=== PATIENT | male | born 1945 | race Caucasian/White ===

== ENCOUNTER → 2017-06-27 | Outpatient (CLI) | payer OTHER ==
--- NOTE | ~2017-06-27 | 2DMMODE ---
[facility] [place] [address] 2 D/M-MODE ECHOCARDIOGRAM Name: TING VALENTIN Room #: REG [facility]#: [id number] Admission: 06/27/17 Attend Phys: Devin Grier MD Discharge: Date of : 47 Date of Service: 06/27/17 1305 Report #: [id number] THIS REPORT FOR: //name// APPROVED REPORT Study performed: 06/27/2017 10:53:02 EXAM: Comprehensive 2D, Doppler, and color-flow Echocardiogram Patient Location: Echo lab Status: routine BSA: 2.13 BP: 144/80 mmHg Other Information Study Quality: Good Technically limited study due to low parasternal window. Indications Arrhythmia 2D Dimensions RVDd: 29.55 mm LVEF(%): 31.63 (>50%) IVSd: 13.03 (7-11mm) LVOT Diam: 22.60 (18-24mm) LVDd: 43.28 mm PWd: 11.73 (7-11mm) Ascending Ao: 37.81 (22-36mm) LVDs: 36.88 (25-40mm) Aortic Root: 35.59 mm IVC: 20.00 mm Liao's LVEF: 31.63 % Volumes Left Atrial Volume (Systole) Single Plane 4CH: 37.29 mL Single Plane 2CH: 52.26 mL LA ESV Index: 24.00 mL/m2 Aortic Valve AoV Peak Usman.: 1.11 m/s AO Peak Gr.: 4.96 mmHg LVOT Max P.54 mmHg LVOT Max V: 0.80 m/s SAMY Vmax: 2.87 cm2 Mitral Valve E/A Ratio: 1.2 [facility] [place] [address] 2 D/M-MODE ECHOCARDIOGRAM Name: BARBIETING LOCKWOOD Room #: REG [facility]#: [id number] Admission: 06/27/17 Attend Phys: Devin Grier MD Discharge: Date of : 47 Date of Service: 06/27/17 1305 Report #: [id number] MV Decel. Time: 254.03 ms MV E Max Usman.: 0.75 m/s MV A Usman.: 0.63 m/s MV PHT: 73.67 ms IVRT: 121.11 ms Pulmonary Valve PV Peak Usman.: 1.03 m/s PV Peak Gr.: 4.27 mmHg Pulmonary Vein P Vein S: 0.68 m/s P Vein A: 0.26 m/s P Vein D: 0.38 m/s P Vein A Dur.: 92.3 msec P Vein S/D Ratio: 1.79 Tricuspid Valve TR Peak Usman.: 2.95 m/s RAP Estimate: 5.00 mmHg TR Peak Gr.: 34.86 mmHg Left Ventricle The left ventricle is normal size. There is normal left ventricular wall thickness. Left ventricular systolic function is borderline. LVEF is 50%. Moderate diastolic dysfunction is present (pseudonormal filling). Right Ventricle The right ventricle is normal size. The right ventricular systolic function is normal. Atria The left atrium size is normal. Right atrium is normal. Aortic Valve The aortic valve is normal in structure. No aortic regurgitation is present. There is no aortic valvular stenosis. Mitral Valve The mitral valve is normal in structure. Trace mitral regurgitation. No evidence of mitral valve stenosis. Tricuspid Valve The tricuspid valve is normal in structure. There is trace to mild tricuspid regurgitation. The right atrial pressure is estimated at 5 mmHg. PAP is estimated at 40 mmHg. Pulmonic Valve Pulmonic valve is not well visualized. Trace pulmonic [facility] [address] [place] [address] 2 D/M-MODE ECHOCARDIOGRAM Name: TING VALENTIN FABIÁN Room #: [facility] [id number] Admission: 06/27/17 Attend Phys: Devin Grier MD Discharge: Date of : 47 Date of Service: 06/27/17 1305 Report #: [id number] regurgitation. Great Vessels The aortic root is normal in size. The ascending aorta is mildly dilated at 3.8 cm. IVC is normal in size and collapses >50% with inspiration. <Conclusion> The left ventricle is normal size. Left ventricular systolic function is borderline. LVEF is 50%. The right ventricle is normal size. The left atrium size is normal. The aortic valve is normal in structure. Trace mitral regurgitation. There is trace to mild tricuspid regurgitation. The right atrial pressure is estimated at 5 mmHg. PAP is estimated at 40 mmHg. <ELECTRONICALLY SIGNED> By: Devin Grier MD 06/27/17 1305 1305 1305 Devin Grier MD /INF
== END ==
LOC: CV 09:29
DX: I49.9 Cardiac arrhythmia, unspecified (principal)

== ENCOUNTER → 2017-07-07 | Outpatient (CLI) | payer OTHER ==
[~2017-07-07] MED LIST: ASPIR 8181 MG PO; NEPHROCAPS SOFT1 CAP PO; SILDENAFIL20 MG PO; TRAVATAN Z5 ML OPHTHALMIC
--- NOTE | ~2017-07-07 | CATHLAB ---
[facility] [address] [place] [address] INVASIVE PROCEDURE REPORT Name: TING VALENTIN [facility] [id number] Admission: 07/07/17 Attend Phys: Devin Grier MD Discharge: Date of : 47 Date of Service: 07/07/171806 Report #: [id number] THIS REPORT FOR: //name// APPROVED REPORT Patient Details Patient Status: Out-Patient Room #: The patient is a 71 year-old male Event Personnel Devin Grier Gluing Crew Leader, Wendy Alejo Monitor, Sharon Edgar Monitor, Yves Cruz RN RN, Urbano Caceres RN, Stormy Ames Procedures Performed Art Access - R femoral artery* Left Heart Cath w/or w/o Coronaries [id number] [facility] [id number] Initial Mod Sed Same Phys/QHP Gr5y [id number] 28852 Mod Sed Same Phys/QHP Ea 008014 Hemostasis with Manual pressure Indication Dyspnea, Positive stress test Risk Factors Tobacco History () Procedure Narrative The patient was brought electively to the Cardiac Catheterization Laboratory and was prepped and draped in a sterile manner. The Right Groin^ was infiltrated with 1% Lidocaine subcutaneous anesthesia. A PINNACLE 4FR Sheath #[id number] sheath was inserted into the RFA^. Coronary angiography was performed using coronary diagnostic catheters. The right coronary system was accessed and visualized with a JR 4 catheter. The left coronary system was accessed and visualized with a JL 5 catheter. The left ventricle was accessed and visualized with a Pigtail catheter. Left ventricular/Aortic Valve gradient assessed via catheter pullback. Left ventriculogram was performed in 30 degree projection. Hemostasis was obtained with manual pressure following sheath removal without any complications. The patient tolerated the procedure well and there were no complications associated with the procedure. There was no hematoma. Intraoperative Conscious Sedation Sedation start time: 13:16 Case end Time: 13:40 [facility] [address] [place] [address] INVASIVE PROCEDURE REPORT Name: BARBIETING LOCKWOOD Room #: REG [facility]#: [id number] Admission: 07/07/17 Attend Phys: Devin Grier MD Discharge: Date of : 47 Date of Service: 07/07/17 1807 Report #: [id number] Fentanyl 50.0 mcg Versed 1.0 mg Fluoro Time: 2.29 minutes Dose: DAP 4154.00 cGycm2 511 mGy Contrast Type and Amount: Omnipaque 100 ml Coronary Angiography The patient's coronary anatomy is right dominant. Diagnostic Cath Left Main Large-caliber vessel, with no flow-limiting lesions. LAD Moderate size caliber vessel, with mild disease in mid segment, less than 30%. Diagonal 1 Patent vessel, with no flow-limiting lesions. Circumflex Mild disease in proximal segment, 30%. OM1 Patent vessel, with no flow-limiting lesions. Right Coronary Dominant vessel with mild disease in proximal segment, less than 20%. Ramus Patent vessel, with no flow-limiting lesions. Left Ventriculography The left ventricle is normal in size with normal contractility. The left ventricular ejection fraction is estimated to be >55%. Hemodynamics The aortic pressure is 121/56 mmHg with a mean of 83 mmHg. The left ventricular pressure is 128/3 mmHg with a mean of mmHg. The left ventricular end diastolic pressure is 19 mmHg. Conclusion 1. Mild, nonobstructive coronary artery disease. 2. Normal LV systolic function. 3. Recommend medical therapy. Recommendations Medical Therapy <ELECTRONICALLY SIGNED> By: Devin Grier MD 07/07/171806 06 06 Devin Grier MD /INF
[2017-07-07 14:23] LABS: CALCIUM 9.3 mg/dL (8.5-10.1); CREATININE 0.9 mg/dL (0.7-1.3); POTASSIUM 3.9 mmol/L (3.5-5.1)
[2017-07-07 14:24] LABS: HEMATOCRIT 43.4 % (42.0-52.0); MCH 92.1 pg (26.0-34.0); MCHC 34.5 % (28.0-37.0); RBC 4.71 mil/uL (4.50-6.00); RDW 12.6 % (10.5-14.5); WBC 8.2 thou/uL (4.0-11.0)
== END ==
LOC: CATH 09:22
PROVIDERS: Internal Medicine Cardiovascular Disease
DX: I25.10 Atherosclerotic heart disease of native coronary artery without angina pectoris (principal); I10 Essential (primary) hypertension; E11.9 Type 2 diabetes mellitus without complications; F17.210 Nicotine dependence, cigarettes, uncomplicated; Z79.82 Long term (current) use of aspirin

== ENCOUNTER → 2017-12-12 | Outpatient (CLI) | payer OTHER ==
[2017-12-12 08:51] LABS: ABSOLUTE NEUTROPHILS 5.6 thou/uL (1.4-8.2); BASOPHILS 1.1 % (0.0-2.0); EOSINOPHILS 3.4 % (0.0-3.0); HEMATOCRIT 42.8 % (42.0-52.0); HEMOGLOBIN 14.8 gm/dL (14.0-18.0); LYMPHOCYTES 28.8 % (24.0-44.0); MCHC 34.6 g/dL (28.0-37.0); MCV 92.5 fL (80.0-100.0); MONOCYTES 8.6 % (1.0-8.0); PLATELET COUNT 229 thou/uL (150-400); POLYS 58.1 % (36.0-66.0); RBC 4.63 mil/uL (4.50-6.00); WBC 9.6 thou/uL (4.0-11.0)
[2017-12-12 09:06] LABS: ALBUMIN 3.8 g/dL (3.4-5.0); CALCIUM 9.3 mg/dL (8.5-10.1); CREATININE 0.9 mg/dL (0.7-1.3); DIRECT BILIRUBIN 0.2 mg/dL (<0.1-0.3); POTASSIUM 4.4 mmol/L (3.5-5.1); TOTAL BILIRUBIN 0.7 mg/dL (<0.1-1.0); TOTAL PROTEIN 7.2 g/dL (6.4-8.2)
== END ==
LOC: CAT 08:24
PROVIDERS: Nuclear Medicine Nuclear Cardiology
DX: I71.2 Thoracic aortic aneurysm, without rupture (principal); J43.8 Other emphysema; I25.10 Atherosclerotic heart disease of native coronary artery without angina pectoris; I70.1 Atherosclerosis of renal artery; M47.894 Other spondylosis, thoracic region; I70.0 Atherosclerosis of aorta; N20.0 Calculus of kidney; I73.9 Peripheral vascular disease, unspecified; E78.5 Hyperlipidemia, unspecified; I49.9 Cardiac arrhythmia, unspecified

== ENCOUNTER → 2019-01-31 | Outpatient (CLI) | payer OTHER ==
[~2019-01-31] VITALS: Ht 185.4 cm; Wt 94.3 kg
[~2019-01-31] MED LIST changes: +ADDERALL XR 2020 MG PO; +AMERGE2.5 MG PO; +ARMOUR THYROID90 M1 PO; +COREG6.25 MG PO; +COZAAR 25 MG TA25 M2 PO; +CRESTOR10 MG PO; +FINASTERIDE5 MG PO; +FLOMAX0.4 MG PO; +LIPITOR10 MG PO; +LOSARTAN POTASS50 MG PO; +OZEMPIC1 MG/0.75 INJECTION; +PHENAZOPYRIDIN100 M1 PO; +PLAVIX 75 MG TA75 M1 PO; +PROGESTERONE200 MG PO; +TOPROL XL25 MG PO; +TRAVATAN Z2.5 ML OPHTHALMIC; +VASCEPA1 GM PO; +VIAGRA100 MG PO; +WELLBUTRIN XL300 MG PO; +XANAX 0.5 MG0.5 MG PO
[2019-01-31 09:58] VITALS: BP 133/64
[2019-01-31 10:21] LABS: HEMATOCRIT 37.1 % (42.0-52.0); HEMOGLOBIN 13.1 gm/dL (14.0-18.0); MCH 32.4 pg (26.0-34.0); MCHC 35.4 g/dL (28.0-37.0); MCV 91.5 fL (80.0-100.0); RBC 4.06 mil/uL (4.50-6.00); RDW 12.6 % (10.5-14.5); WBC 7.5 thou/uL (4.0-11.0)
[2019-01-31 10:29] LABS: CALCIUM 9.1 mg/dL (8.5-10.1); CREATININE 1.3 mg/dL (0.7-1.3); POTASSIUM 4.3 mmol/L (3.5-5.1)
== END | disposition home or self-care (01) ==
LOC: SPEC 07:49
PROVIDERS: Nuclear Medicine Nuclear Cardiology
DX: I70.212 Atherosclerosis of native arteries of extremities with intermittent claudication, left leg (principal); I70.0 Atherosclerosis of aorta; I70.1 Atherosclerosis of renal artery; I74.3 Embolism and thrombosis of arteries of the lower extremities

== ENCOUNTER 2019-07-13 21:29 | Inpatient (IN) | payer OTHER ==
[~2019-07-13] VITALS: Ht 185.4 cm; Wt 95.3 kg
[2019-07-13 21:30] VITALS: BP 110/46
[2019-07-13 22:16] LABS: ABSOLUTE NEUTROPHILS 7.9 thou/uL (1.4-8.2); BASOPHILS 0.8 % (0.0-2.0); EOSINOPHILS 1.5 % (0.0-3.0); HEMATOCRIT 23.7 % (42.0-52.0); HEMOGLOBIN 8.1 gm/dL (14.0-18.0); LYMPHOCYTES 17.5 % (24.0-44.0); MCHC 34.2 g/dL (28.0-37.0); MCV 93.4 fL (80.0-100.0); MONOCYTES 7.1 % (1.0-8.0); PLATELET COUNT 209 thou/uL (150-400); POLYS 73.1 % (36.0-66.0); RBC 2.53 mil/uL (4.50-6.00); RDW 13.4 % (10.5-14.5); WBC 10.9 thou/uL (4.0-11.0)
[2019-07-13 22:25] LABS: CALCIUM 8.8 mg/dL (8.5-10.1); CREATININE 1.5 mg/dL (0.7-1.3); POTASSIUM 3.9 mmol/L (3.5-5.1)
--- NOTE | 2019-07-13 23:09 | NUR ---
MOSES BOX AND WATER GIVEN TO PT PER DR. SLATER PERMISSION. NPO AT MIDNIGHT. PT IS AWARE
[2019-07-14 00:20] VITALS: BP 110/62
[2019-07-14 00:59] VITALS: BP 110/62
--- NOTE | 2019-07-14 03:24 | NUR ---
PATIENT ARRIVED VIA WHEELCHAIR FROM ED AND TOOK STEPS TO THE BED W/O COMPLICATION. NO C/O DIZZINESS. DENIES PAIN. ALERT AND ORIENTED X4. IV PROTONIX INFUSING UPON ARRIVAL. MARKETING AUTOMATION ANALYST ADDED CONTINUOUS IVF WHICH WAS HUNG BY THIS NURSE. SOME BRUISING TO ARMS, HOWEVER, NO SKIN TEARS OR WOUNDS. PATIENT IS NPO AND RESTING QUIETLY. VOIDING CLEAR YELLOW URINE PER URINAL. WILL MONITOR.
[2019-07-14 05:21] LABS: HEMATOCRIT 20.7 % (42.0-52.0); MCH 31.8 pg (26.0-34.0); MCHC 33.9 g/dL (28.0-37.0); MCV 93.9 fL (80.0-100.0); RBC 2.21 mil/uL (4.50-6.00); RDW 13.4 % (10.5-14.5); WBC 8.9 thou/uL (4.0-11.0)
[2019-07-14 05:34] LABS: CALCIUM 8.2 mg/dL (8.5-10.1); CREATININE 1.5 mg/dL (0.7-1.3); POTASSIUM 3.9 mmol/L (3.5-5.1)
[2019-07-14 07:46] VITALS: BP 110/50
[2019-07-14 11:55] LABS: HEMOGLOBIN 6.8 gm/dL (14.0-18.0)
[2019-07-14 11:57] LABS: HEMATOCRIT 19.8 % (42.0-52.0)
[2019-07-14 13:45] VITALS: BP 95/57
[2019-07-14 17:28] VITALS: BP 109/53
[2019-07-14 18:19] LABS: HEMATOCRIT 23.1 % (42.0-52.0)
[2019-07-14 19:46] VITALS: BP 102/58
--- NOTE | 2019-07-14 19:54 | NUR ---
PATIENT ALERT AND ORIENTED AND COOPERATIVE WITH POC. EGD TODAY AND GASTRIC ULCER IS HEALING PER EGD NURSE. CONTINUES IV PPI THERAPY AND UP AD CHERIE IN ROOM. TWO X-WIFES AT BEDSIDE AT TWO DIFFERENT TIMES TODAY. POSSIBLE DC TOMORROW.
--- NOTE | 2019-07-15 04:09 | NUR ---
ASSUMED CARE OF PT AT 1900HRS. PT AOX4 AND LETS NEEDS BE KNOWN. FALL PRECAUTION IN PLACE. PROTONIX DRIP CONTINUED. PT FINISHED DINNER. PT DENIES NAUSEA OR PAIN. PT WAS STANDBY ASSIST TO THE TOILET AND HAD A STEADY GAIT. PT WAS ABLE TO SLEEP PART OF THE SHIFT. VSS AND NO S/S OF ACUTE DISTRESS. WILL CONTINUE TO MONITOR.
[2019-07-15 07:26] VITALS: BP 116/47
[2019-07-15 09:49] LABS: HEMOGLOBIN 7.4 gm/dL (14.0-18.0); MCH 31.3 pg (26.0-34.0); MCHC 33.6 g/dL (28.0-37.0); MCV 93.3 fL (80.0-100.0); RBC 2.36 mil/uL (4.50-6.00); WBC 6.8 thou/uL (4.0-11.0)
[2019-07-15 10:01] LABS: CREATININE 1.4 mg/dL (0.7-1.3); MAGNESIUM 1.8 mg/dL (1.8-2.4); POTASSIUM 4.2 mmol/L (3.5-5.1)
--- NOTE | 2019-07-15 10:48 | HC ---
[facility] [place] [address] [place] [address] CONSULTATION Name: TING VALENTIN Room #: 451-P ADM IN .R.#: [id number] Admission: 07/14/19 ������������������ Attend Phys: Doc Jasso MD Discharge: ������������������ Date of : 47 Report #: [id number] THIS REPORT FOR: //name// CC: Dimitry Jasso MD DATE OF SERVICE: 07/14/2019 HISTORY OF PRESENT ILLNESS: The patient is a 73-year-old male who began having black melanotic stools approximately 3-4 days ago. He denies any abdominal pain. No nausea or vomiting. The patient has a history of peripheral vascular disease and has undergone two stent placements in the past, one in the last year. He has been on aspirin and Plavix. He also has a history of renal cell carcinoma, status post left nephrectomy in December of this year. He has been feeling more weak in general. Last colonoscopy was approximately 4 years ago that was reportedly unremarkable. He does have a family history of colon cancer in a brother. His weight has been stable recently. He also took Aleve recently for the last 2 days. He denies any heartburn symptoms. He denies any dysphagia or odynophagia. Currently, denies any chest pain, shortness of breath. No fevers or chills. The patient admits hemoglobin was 8.1. In January of this year he was at 13.1, today it is 7.0. His aspirin and Plavix have been held. He has been placed on a Protonix drip. He underwent a CT scan of his abdomen and pelvis on admission through the ER last night, which showed gastric mucosal enhancement and gastric wall thickening, nonspecific thickening of the urinary bladder, otherwise unremarkable. PAST MEDICAL HISTORY: Peripheral vascular disease, status post stent placement, history of renal cell cancer, status post nephrectomy, diabetes, hypertension, previous hernia repair. MEDICATIONS ON ADMISSION: Lipitor, finasteride, losartan, metoprolol, Plavix, aspirin, Flomax. ALLERGIES: No known drug allergies. REVIEW OF SYSTEMS: As per HPI. SOCIAL HISTORY: He quit smoking years ago. He does report occasional alcohol use. FAMILY HISTORY: Positive for colon cancer in his brother. PHYSICAL EXAMINATION: VITAL SIGNS: Temperature is 98.6, pulse 74, blood pressure 110/50, respiratory rate is 20. [facility] [address] [place] [address] CONSULTATION Name: TING VALENTIN Room #: 451-P [facility] IN M.R.#: [id number] Admission: 07/14/19 ������������������ Attend Phys: Doc Jasso MD Discharge: ������������������ Date of : 47 Report #: [id number] GENERAL: He is alert and oriented x 3, in no acute distress. HEENT: Sclerae nonicteric. Oropharynx clear. NECK: Supple, without lymphadenopathy. CARDIOVASCULAR: Regular rate and rhythm. CHEST: Clear to auscultation bilaterally. ABDOMEN: Soft. He is nontender, nondistended, normoactive bowel sounds. EXTREMITIES: No cyanosis, clubbing or edema. LABORATORY DATA: Sodium 142, potassium 3.9, chloride 112, bicarbonate 20, BUN 40, creatinine 1.5, glucose 110, calcium 8.2. WBC is 8.9, hemoglobin 7.0, MCV 93.9, platelet count is 184. ASSESSMENT AND PLAN: Gastrointestinal bleed, suspect upper source. The patient with melanotic stools for the last 3-4 days, elevated BUN. He has also been on aspirin and Plavix as well as Aleve. No previous history of upper endoscopy. Hemoglobin has dropped to 7. Vital signs are stable at this time. Agree with Protonix drip, which has already been started. We will proceed with upper endoscopy today for further evaluation. We will make further recommendations at that time. Thank you for allowing me to participate in his care. ��������������������������������������������� <ELECTRONICALLY SIGNED> ���������������������������������������� By: Kel Edmond MD ��������������������������������������������� 07/15/19 1048 1043 1116 Kel Edmond MD /nt
--- NOTE | 2019-07-15 10:48 | P ---
[facility] [place] [place] [address] [place] [address] PROCEDURE REPORT Name: TING VALENTIN Room #: 451-P [facility] IN M.R.#: [id number] Admission: 07/14/19 ������������������ Attend Phys: Doc Jasso MD Discharge: ������������������ Date of : 47 Report #: [id number] THIS REPORT FOR: //name// CC: Dimitry Jasso DATE OF SERVICE: 07/14/2019 PROCEDURE PERFORMED: Upper endoscopy. HISTORY OF PRESENT ILLNESS: The patient is a 73-year-old male with approximately 3-4 day history of melanotic stools. No previous history of GI bleed, has had a drop in his hemoglobin. Current hemoglobin is 7.0. He has been on aspirin and Plavix long-term for peripheral vascular disease, previous history of stent placement. He also took Aleve the last several days. Denies any abdominal pain, nausea, vomiting, or hematemesis. Plan is for upper endoscopy. DESCRIPTION OF PROCEDURE: The risks and benefits of the procedure were explained to the patient, those risks including but not limited to bleeding, perforation, and the risk of sedation. He understood these risks and gave informed consent. Sedation was given using propofol per anesthesia. Next, using a standard Olympus upper endoscope, the scope was placed in the patient's mouth and advanced under direct vision through the esophagus, stomach, and into the second portion of the duodenum. The esophagus was normal throughout. The GE junction was normal. The gastric fundus and body were normal; however, in the antrum, there was gastritis noted as well as multiple small ulcers in the antrum. Also, noted was a large ulcer approximately 3 cm in diameter. This appears to be benign. I did not obtain biopsies as the patient has been on aspirin and Plavix recently. There was no blood throughout the exam today. No visible vessel or clots were noted. It appears the ulcers are in the process of healing at this time. The pylorus was normal and patent. The duodenal bulb was normal. In the first portion of the duodenum, mild duodenitis was noted. No evidence of bleeding or ulcerations. The second portion of the duodenum was normal. No evidence of blood in the duodenum. At this point, the scope was then withdrawn and the procedure terminated. The patient tolerated the procedure well. IMPRESSION: 1. Large antral ulcer, likely source of recent gastrointestinal bleed. No signs of bleeding at this time. No visible vessel, no blood on exam today. 2. Multiple small clean white base ulcers in the antrum as well as mild gastritis. 3. Mild duodenitis. 4. Otherwise, normal upper endoscopy. [address] [address] PROCEDURE REPORT Name: BARBIETING Room #: 451-P [facility] IN .R.#: [id number] Admission: 07/14/19 ������������������ Attend Phys: Doc Jasso MD Discharge: ������������������ Date of : 47 Report #: [id number] RECOMMENDATIONS: 1. Continue PPI drip today. 2. Continue to monitor hemoglobin closely. If hemoglobin drops below 7, we would recommend transfusion. 3. We will add Carafate at this time. 4. Continue to hold aspirin and Plavix. 5. We will start a regular diet today. If hemoglobin stable by tomorrow, consider possible discharge home. We would recommend a repeat upper endoscopy in approximately 4-6 weeks to verify healing. Thank you for allowing me to participate in his care. ��������������������������������������������� <ELECTRONICALLY SIGNED> ���������������������������������������� By: Kel Edmond MD ��������������������������������������������� 07/15/19 1048 1047 1117 Kel Edmond MD /nt
--- NOTE | 2019-07-15 14:14 | EKG ---
[address] [place] [address] ELECTROCARDIOGRAM REPORT Name: TING VALENTIN Room #: 451-P ADM IN M.R.#: [id number] ������������������ Admission: 07/14/19 ������������������ Attend Phys: Doc Jasso MD Discharge: ������������������ Date of : 47 Report #: [id number] ����������������������������������������������������������������� [id number] THIS REPORT FOR: //name// [facility] ED Test Date: 2019-07-13 Test Time: 22:13:22 Pat Name: TING VALENTIN Department: Room: [facility] Gender: M Falafel Cart Cook: W[place] : 1945 Requested By: Shashi Morales Order Number: [id number] MD: Dandre Rutledge Measurements Intervals Dunbar Rate: 86 P: 81 WV: 150 QRS: 49 QRSD: 89 T: 47 QT: 389 QTc: 466 Interpretive Statements Sinus rhythm Normal tracing No previous ECG available for comparison Electronically Signed On 07-15-2019 14:14:06 CDT by Dandre Rutledge [email or web address] ��������������������������������������������� <ELECTRONICALLY SIGNED> ���������������������������������������� By: Dandre Rutledge MD, [facility] ��������������������������������������������� 07/15/19 1414 2213 2213 Dandre Rutledge MD, FACC /EPI
[2019-07-15 15:00] VITALS: BP 133/53
--- NOTE | 2019-07-15 17:22 | NUR ---
PT ASSESSED AT START OF SHIFT. FEELING SOME BETTER. HGB DOWN FROM LAST EVENING. DR. QUEEN IN THIS AM TO SEE PT AND FELT NEEDED ANOTHER DAY IN HOSPITAL HGB STILL LOW. PT CALLING WHEN NEEDING TO GET UP. NO C/O ABD PAIN.
[2019-07-15 19:00] VITALS: BP 122/56
--- NOTE | 2019-07-16 04:27 | NUR ---
A&O, calm and pleasant; vss, afebrile; got up to the bathroom with standby assist, steady; no soa, denied pain; Protonix drip has been going on; denied BM. Lying in bed with eyes closed, chest up and down. Lab reviewed. Will keep monitoring.
[2019-07-16 05:44] LABS: HEMATOCRIT 21.7 % (42.0-52.0); HEMOGLOBIN 7.3 gm/dL (14.0-18.0); MCH 31.3 pg (26.0-34.0); MCHC 33.8 g/dL (28.0-37.0); MCV 92.6 fL (80.0-100.0); RBC 2.34 mil/uL (4.50-6.00); RDW 13.9 % (10.5-14.5); WBC 7.1 thou/uL (4.0-11.0)
[2019-07-16 05:50] LABS: CALCIUM 8.4 mg/dL (8.5-10.1); CREATININE 1.4 mg/dL (0.7-1.3); POTASSIUM 4.2 mmol/L (3.5-5.1)
[2019-07-16 07:08] VITALS: BP 111/57
--- NOTE | 2019-07-16 13:43 | NUR ---
ASSUMED CARE AT 0700, SHIFT ASSESSMENT DONE, MEDS GIVEN, VSS. DENIES PAIN, NAUSEA, VOMITING. UP WITH STANDBY, ON PROTONIX DRIP. GHB AT 7.3 TODAY. ORTHOSTATICS OBTANIED PER DR AGUILA AND NOTIFIED. ORDER RECEIVED TO SCAN BLADDER BEFORE AND AFTER VOID. POSSIBLE DC TODAY. WILL CONTINUE TO ASSESS AND ASSIST WITH ADLs NEEDED.
--- NOTE | 2019-07-16 14:28 | NUR ---
PT ADMITTED RELATED TO GI BLEED. CM REVIEWED CHART AND SPOKE WITH CARE TEAM. CM MET WITH PT AT BEDSIDE THIS DAY. PT IS A&O X4. CM ROLE INTRODUCED. PT INDICATED HE LIVES ALONE IN A HOUSE WITH 2 STEPS TO ENTER AND A FULL FLIGHT OF STEPS TO SECONCE STORY BEDROOMS AND BATHROOM. 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 PT INDICATED NO HH OR OP PT HX. PT INDICATED THAT HE PLANS TO RETURN HOME OCNE MEDICALLY STABLE AND DOESN'T ANTICPATE ANY NEEDS. PT DID INDICATED HE MAY NEED A CAB HOME IF HE IS TO DC TODAY. CM TO FOLLOW INDICATED WITH DC PLANNING.
[2019-07-16] MEDS ORDERED: CARAFATE 1 GM TA1 G1 PO (16:17)
[2019-07-16] MEDS ORDERED: LOSARTAN POTASS50 MG PO (16:18)
[2019-07-16] MEDS ORDERED: OMEPRAZOLE40 MG PO (16:19)
[2019-07-16 17:50] VITALS: BP 111/57
--- NOTE | 2019-07-16 20:02 | NUR ---
DISCHARGE ORDER RECEIVED, PERIPHERAL IV WAS TAKEN OUT. ACCORDING TO DR ALONSO, PATIENT WAS EDUCATED ON TO STRAIGHT CATH HIMSELF, AND STRAIGHT CATH KIT WAS GIVEN. PRESCRIPTIONS GIVEN. PT LEFT WITH NURSING STAFF AT 1800
== END 2019-07-16 18:36 | disposition home or self-care (01) | DRG 378 ==
LOC: ER 21:29 → EROBS 07-14 00:15 → 4W 07-14 00:15
PROVIDERS: Emergency Medicine; Nurse Practitioner Family; Specialist; ADMIT Internal Medicine
PROC: 0DJ08ZZ Inspection of Upper Intestinal Tract, Via Natural or Artificial Opening Endoscopic (ICD-10-PCS; principal; 2019-07-14)
PROC: 30233N1 Transfusion of Nonautologous Red Blood Cells into Peripheral Vein, Percutaneous Approach (ICD-10-PCS; principal; 2019-07-14)
DX: K25.4 Chronic or unspecified gastric ulcer with hemorrhage (principal); N17.9 Acute kidney failure, unspecified; D62 Acute posthemorrhagic anemia; K29.81 Duodenitis with bleeding; K29.71 Gastritis, unspecified, with bleeding; N18.3 Chronic kidney disease, stage 3 (moderate); I12.9 Hypertensive chronic kidney disease with stage 1 through stage 4 chronic kidney disease, or unspecified chronic kidney disease; E11.22 Type 2 diabetes mellitus with diabetic chronic kidney disease; N40.1 Benign prostatic hyperplasia with lower urinary tract symptoms; R33.8 Other retention of urine; E11.51 Type 2 diabetes mellitus with diabetic peripheral angiopathy without gangrene; Z85.528 Personal history of other malignant neoplasm of kidney; Z90.5 Acquired absence of kidney; Z80.0 Family history of malignant neoplasm of digestive organs
CPT/HCPCS: 10040; 62110; 62900

== ENCOUNTER 2019-07-29 10:39 | Emergency (ER) | payer OTHER ==
[~2019-07-29] VITALS: Ht 185.4 cm; Wt 97.5 kg
[~2019-07-29 10:39] MED LIST changes: +CARAFATE 1 GM TA1 G1 PO; +OMEPRAZOLE40 MG PO
[2019-07-29] MEDS ORDERED: IRON325 PO (10:59)
[2019-07-29 11:07] LABS: ABSOLUTE NEUTROPHILS 5.6 thou/uL (1.4-8.2); BASOPHILS 1.1 % (0.0-2.0); EOSINOPHILS 2.5 % (0.0-3.0); HEMATOCRIT 29.5 % (42.0-52.0); LYMPHOCYTES 18.9 % (24.0-44.0); MCH 31.3 pg (26.0-34.0); MCHC 33.9 g/dL (28.0-37.0); MCV 92.3 fL (80.0-100.0); MONOCYTES 8.3 % (1.0-8.0); PLATELET COUNT 318 thou/uL (150-400); POLYS 69.2 % (36.0-66.0); RDW 14.7 % (10.5-14.5)
[2019-07-29 11:12] LABS: CALCIUM 9.4 mg/dL (8.5-10.1); CREATININE 1.5 mg/dL (0.7-1.3); POTASSIUM 4.6 mmol/L (3.5-5.1)
[2019-07-29 11:17] LABS: APTT 25.6 Seconds (24.5-32.8); PROTIME 10.1 Seconds (9.3-11.4)
[2019-07-29 12:10] VITALS: BP 128/61
[2019-08-14] MEDS ORDERED: CARAFATE 1 GM TA1 GM PO (14:07)
[2019-08-14] MEDS ORDERED: COZAAR 25 MG TA25 MG PO (14:08)
[2019-08-14] MEDS ORDERED: TRAVATAN Z5 ML OPHTHALMIC (14:10)
[2019-08-14] MEDS ORDERED: FLOMAX0.4 MG PO (14:25)
[2019-08-14] MEDS ORDERED: OMEPRAZOLE40 MG PO (14:25)
== END 2019-07-29 12:21 | disposition home or self-care (01) ==
LOC: ER 10:39
PROVIDERS: Emergency Medicine
DX: K92.1 Melena (principal); I10 Essential (primary) hypertension; Z86.2 Personal history of diseases of the blood and blood-forming organs and certain disorders involving the immune mechanism; Z90.5 Acquired absence of kidney; Z85.54 Personal history of malignant neoplasm of ureter; Z98.890 Other specified postprocedural states; Z87.891 Personal history of nicotine dependence

== ENCOUNTER → 2019-08-15 | Outpatient (CLI) | payer OTHER ==
[~2019-08-15] VITALS: Ht 185.4 cm; Wt 97.5 kg
[~2019-08-15] MED LIST changes: +CARAFATE 1 GM TA1 GM PO; +COZAAR 25 MG TA25 MG PO; +IRON325 PO
--- NOTE | 2019-08-17 10:31 | P ---
[facility] [place] [address] PROCEDURE REPORT Name: TING VALENTIN III Room #: REG [facility] Viviana#: [id number] Admission: 08/15/19 Attend Phys: Kel Denis Discharge: Date of : 47 Report #: [id number] THIS REPORT FOR: //name// CC: Kel Grier MD DATE OF SERVICE: 08/15/2019 PROCEDURE PERFORMED: Upper endoscopy. HISTORY OF PRESENT ILLNESS: The patient is a 73-year-old male with a history of upper GI bleed due to large gastric ulcer. He underwent an upper endoscopy as an inpatient by myself on 07/14/2019. A large 3 cm ulcer was noted in the gastric antrum, multiple smaller ulcers were noted in the antrum as well. At that time, the patient had been on aspirin and Plavix. He did require blood transfusion. He denies any further bleeding. He has been off his aspirin and Plavix since that time. He presents today for an EGD and colonoscopy. He has been on PPI therapy as well as Carafate. His hemoglobin has been improving. Plan is for repeat upper endoscopy. DESCRIPTION OF PROCEDURE: The risks and benefits of the procedure were explained to the patient, those risks including but not limited to bleeding, perforation and the risk of sedation. He understood these risks and gave informed consent. Sedation was given using propofol per Anesthesia. Next, using a standard Olympus upper endoscope, the scope was placed in the patient's mouth and advanced under direct vision through the esophagus, stomach and into the second portion of the duodenum. The larynx was normal in appearance. The esophagus was normal throughout. GE junction was normal. Overall, the gastric mucosa was normal in the fundus and body. The previous large gastric antral ulcer has now healed. There is scarring in this area, but again it is well healed. No evidence of remnant ulcers are noted. The pylorus was normal and patent. The duodenal bulb, first and second portion were all normal. The scope was then withdrawn and the procedure terminated. The patient tolerated the procedure well. IMPRESSION: 1. Previous large antral ulcer well healed. 2. No other abnormalities noted today. RECOMMENDATIONS: 1. Would continue PPI therapy long-term. 2. The patient is to discuss with Dr. Devin Grier, his advertising project manager, about resuming aspirin and/or Plavix. 3. The patient was tested for stool H. pylori antigen during last [facility] [address] [place] [address] PROCEDURE REPORT Name: BARBIETING [facility] Room #: REG [facility] Michelle#: [id number] Admission: 08/15/19 Attend Phys: Kel Denis Discharge: Date of : 47 Report #: [id number] hospitalization and this was negative. 4. We will proceed with colonoscopy next today. Thank you for allowing me to participate in his care. <ELECTRONICALLY SIGNED> By: Kel Edmond MD 08/17/19 1031 1142 0144 Kel Edmond MD /nt
--- NOTE | 2019-08-17 10:31 | P ---
[facility] [place] [address] PROCEDURE REPORT Name: TING VALENTIN III Room #: REG [facility] Viviana#: [id number] Admission: 08/15/19 Attend Phys: Kel Denis Discharge: Date of : 47 Report #: [id number] THIS REPORT FOR: //name// CC: Kel Grier MD DATE OF SERVICE: 08/15/2019 PROCEDURE PERFORMED: Colonoscopy with biopsies. HISTORY OF PRESENT ILLNESS: The patient is a 73-year-old male who was hospitalized last month for GI bleed due to large gastric antral ulcer. At the time, the patient was taking aspirin and Plavix. He was transfused. Since then, he has been on PPI therapy and Carafate and has been off his aspirin and Plavix. Upper endoscopy was just performed today, which showed complete healing of previous large ulcer. Plan is for colonoscopy next. He has a history of polyps and a family history of colon cancer in his brother. DESCRIPTION OF PROCEDURE: The risks and benefits of the procedure were explained to the patient, those risks including but not limited to bleeding, perforation, and the risk of sedation. He understood these risks and gave informed consent. Sedation was given using propofol per Anesthesia. Next, digital rectal exam was initially performed, which was normal. Next, using a standard Olympus colonoscope, the scope was placed in the patient's anus and advanced under direct vision to the cecum. The overall prep was excellent. In the cecum, there was a 3 mm sessile polyp. This was removed with cold forceps, otherwise normal. The ileocecal valve was normal. Ascending, transverse and descending colon were normal. A few small scattered diverticula were noted in the sigmoid colon, otherwise normal. In the rectum, there was a 4 mm sessile polyp and removed with cold forceps. On retroflexion, small nonbleeding internal hemorrhoids were noted. The scope was then withdrawn and the procedure terminated. The patient tolerated the procedure well. IMPRESSION: 1. Two small colonic polyps. 2. Mild sigmoid diverticulosis. 3. Internal hemorrhoids. 4. Otherwise normal colonoscopy. RECOMMENDATIONS: 1. Await biopsy results. 2. Repeat colonoscopy in [address] [address] PROCEDURE REPORT Name: BARBIETING [facility] Room #: REG Silke Michelle#: [id number] Admission: 08/15/19 Attend Phys: Kel Denis Discharge: Date of : 47 Report #: [id number] Thank you for allowing me to participate in his care. <ELECTRONICALLY SIGNED> By: Kle Edmond MD 08/17/19 1031 1221 0222 Kel Edmond MD /nt
--- NOTE | 2019-08-20 12:06 | PATH ---
[facility] [address] [place] [address] PATHOLOGY RPT PROCEDURE Name: BARBIETING III Room #: REG EVER Gonzalez.#: [id number] Admission: 08/15/19 Date of : 47 Discharge: Report #: [id number] Path Case #: [id number] [facility] Accession Number: [id number] . 01 Material submitted: . PART A: cecum - POLYP AT CECUM PART B: rectum - POLYP AT RECTUM . 01 Clinical history: . Preop DX: hx polyps Postop DX: colon polyps . 02 Diagnosis: A. Polyp, cecum, endoscopic biopsy: - Reactive/hyperplastic changes. - Negative for dysplasia. . B. Polyp, at rectum, endoscopic biopsy: - Hyperplastic polyp. - Negative for dysplasia. (IUV/db; 08/17/2019) LBQ 08/17/2019 1521 Local . 02 Electronically signed: . Rosalia Shrestha MD, Pathologist NPI- [id number] . 01 Gross description: . A. Received in formalin labeled "Ting Valentin III, polyp at cecum," is a segment of ferris soft tissue measuring 0.5 x 0.4 x 0.2 cm in greatest dimensions. The specimen is submitted entirely in cassette A1. . B. Received in formalin labeled "Ting Valentin III, polyp at rectum," is a segment of ferris-brown soft tissue measuring 0.3 x 0.3 x 0.2 cm in greatest dimensions. The specimen is submitted entirely in cassette B1. ([facility]; 08/16/2019) XDC/XDC 08/16/2019 1044 Local . 02 Pathologist provided ICD-10: K62.1, Z86.010 . 02 CPT . 214363, 763982 Specimen Comment: A courtesy copy of this report has been sent to Specimen Comment: [phone], . Specimen Comment: Report sent to / DR TOLEDO Performed at: [address] [place] [address] PATHOLOGY RPT PROCEDURE Name: TING VALENTIN III Room #: REG EVER Michelle#: [id number] Admission: 08/15/19 Date of : 47 Discharge: Report #: [id number] Path Case #: [id number] [facility] [id number] [address], [place] [id number] MD Robert Shetty MD Phone: [phone] Performed at: [address] [id number] MD Rosalia Shrestha MD Phone: [phone]
== END | disposition home or self-care (01) ==
LOC: GI
DX: Z12.11 Encounter for screening for malignant neoplasm of colon (principal); Z86.010 Personal history of colon polyps; Z80.0 Family history of malignant neoplasm of digestive organs; K63.5 Polyp of colon; K62.1 Rectal polyp; K57.30 Diverticulosis of large intestine without perforation or abscess without bleeding; K64.8 Other hemorrhoids; I10 Essential (primary) hypertension; D64.9 Anemia, unspecified; Z90.5 Acquired absence of kidney; Z85.54 Personal history of malignant neoplasm of ureter; Z87.891 Personal history of nicotine dependence; Z98.890 Other specified postprocedural states; Z79.899 Other long term (current) drug therapy
CPT/HCPCS: 62110; 62900

== ENCOUNTER → 2019-11-13 | Outpatient (CLI) | payer OTHER | LOC: SJCVCIMAG 09:19 | DX: M79.604 Pain in right leg (principal); M79.605 Pain in left leg; I25.10 Atherosclerotic heart disease of native coronary artery without angina pectoris; I10 Essential (primary) hypertension; E11.00 Type 2 diabetes mellitus with hyperosmolarity without nonketotic hyperglycemic-hyperosmolar coma (NKHHC); E78.5 Hyperlipidemia, unspecified; F17.210 Nicotine dependence, cigarettes, uncomplicated; Z95.820 Peripheral vascular angioplasty status with implants and grafts ==

== ENCOUNTER → 2020-02-04 | Outpatient (CLI) | payer OTHER | LOC: SJCVC 13:02 | PROVIDERS: ATTEND Internal Medicine Cardiovascular Disease | DX: I25.10 Atherosclerotic heart disease of native coronary artery without angina pectoris (principal); I10 Essential (primary) hypertension; E78.00 Pure hypercholesterolemia, unspecified; E11.9 Type 2 diabetes mellitus without complications; G47.30 Sleep apnea, unspecified; F17.200 Nicotine dependence, unspecified, uncomplicated; Z79.899 Other long term (current) drug therapy ==

== ENCOUNTER → 2020-05-20 | Outpatient (CLI) | payer OTHER | LOC: SJCVCIMAG 08:09 | PROVIDERS: ATTEND Nuclear Medicine Nuclear Cardiology | DX: I65.23 Occlusion and stenosis of bilateral carotid arteries (principal); I70.202 Unspecified atherosclerosis of native arteries of extremities, left leg; I25.10 Atherosclerotic heart disease of native coronary artery without angina pectoris; I10 Essential (primary) hypertension; E11.00 Type 2 diabetes mellitus with hyperosmolarity without nonketotic hyperglycemic-hyperosmolar coma (NKHHC); F17.200 Nicotine dependence, unspecified, uncomplicated; Z79.82 Long term (current) use of aspirin; Z79.899 Other long term (current) drug therapy ==

== ENCOUNTER → 2020-10-07 | Outpatient (CLI) | payer OTHER | LOC: SJCVCIMAG 07:14 | PROVIDERS: ATTEND Internal Medicine Cardiovascular Disease | DX: I25.10 Atherosclerotic heart disease of native coronary artery without angina pectoris (principal); E78.5 Hyperlipidemia, unspecified; I73.9 Peripheral vascular disease, unspecified; F17.200 Nicotine dependence, unspecified, uncomplicated; Z79.82 Long term (current) use of aspirin; Z79.899 Other long term (current) drug therapy ==

== ENCOUNTER → 2020-11-18 | Outpatient (CLI) | payer OTHER ==
[~2020-11-18] MED LIST changes: +ASA81BEC PO; +IRBESARTAN300 MG PO; +LUMIGAN2.5 M1 OP; +PLAVIX 75 MG TA75 MG PO
== END ==
LOC: SJCVCIMAG 07:22
PROVIDERS: ATTEND Internal Medicine Cardiovascular Disease
DX: T82.856A Stenosis of peripheral vascular stent, initial encounter (principal); I25.10 Atherosclerotic heart disease of native coronary artery without angina pectoris; I10 Essential (primary) hypertension; E11.00 Type 2 diabetes mellitus with hyperosmolarity without nonketotic hyperglycemic-hyperosmolar coma (NKHHC); I77.9 Disorder of arteries and arterioles, unspecified; C68.9 Malignant neoplasm of urinary organ, unspecified; Z90.5 Acquired absence of kidney; Z86.79 Personal history of other diseases of the circulatory system; Z87.891 Personal history of nicotine dependence; Z79.82 Long term (current) use of aspirin; Z79.899 Other long term (current) drug therapy; Y83.8 Other surgical procedures as the cause of abnormal reaction of the patient, or of later complication, without mention of misadventure at the time of the procedure; Y92.89 Other specified places as the place of occurrence of the external cause

== ENCOUNTER → 2020-11-21 | Outpatient (CLI) | payer OTHER ==
[~2020-11-21] VITALS: Ht 185.4 cm; Wt 102.1 kg
[2020-11-21 07:18] VITALS: BP 134/68
[2020-11-21 07:50] LABS: HEMATOCRIT 37.5 % (42.0-52.0); HEMOGLOBIN 12.3 gm/dL (14.0-18.0); MCH 29.2 pg (26.0-34.0); MCHC 32.8 g/dL (28.0-37.0); RBC 4.22 mil/uL (4.50-6.00); RDW 14.5 % (10.5-14.5); WBC 9.2 thou/uL (4.0-11.0)
[2020-11-21 08:28] LABS: CALCIUM 9.3 mg/dL (8.5-10.1); CREATININE 1.5 mg/dL (0.7-1.3); POTASSIUM 4.3 mmol/L (3.5-5.1)
== END ==
LOC: CATH 06:44
PROVIDERS: ATTEND Nuclear Medicine Nuclear Cardiology
DX: I70.212 Atherosclerosis of native arteries of extremities with intermittent claudication, left leg (principal); I25.10 Atherosclerotic heart disease of native coronary artery without angina pectoris; I12.9 Hypertensive chronic kidney disease with stage 1 through stage 4 chronic kidney disease, or unspecified chronic kidney disease; N18.9 Chronic kidney disease, unspecified; Z90.5 Acquired absence of kidney

== ENCOUNTER → 2021-02-17 | Outpatient (CLI) | payer OTHER | LOC: SJCVCIMAG 08:11 | PROVIDERS: ATTEND Nuclear Medicine Nuclear Cardiology | DX: I73.9 Peripheral vascular disease, unspecified (principal); I77.9 Disorder of arteries and arterioles, unspecified; I25.10 Atherosclerotic heart disease of native coronary artery without angina pectoris; I10 Essential (primary) hypertension; E11.00 Type 2 diabetes mellitus with hyperosmolarity without nonketotic hyperglycemic-hyperosmolar coma (NKHHC); C68.9 Malignant neoplasm of urinary organ, unspecified; Z90.5 Acquired absence of kidney; Z86.79 Personal history of other diseases of the circulatory system; E78.5 Hyperlipidemia, unspecified; N52.9 Male erectile dysfunction, unspecified; G47.30 Sleep apnea, unspecified; I49.3 Ventricular premature depolarization; Z87.891 Personal history of nicotine dependence; Z79.899 Other long term (current) drug therapy ==

== ENCOUNTER → 2021-03-05 | Outpatient (CLI) | payer OTHER | LOC: SJCVC 11:02 | PROVIDERS: ATTEND Internal Medicine Cardiovascular Disease | DX: I10 Essential (primary) hypertension (principal); I77.9 Disorder of arteries and arterioles, unspecified; E11.51 Type 2 diabetes mellitus with diabetic peripheral angiopathy without gangrene; G47.30 Sleep apnea, unspecified; I25.10 Atherosclerotic heart disease of native coronary artery without angina pectoris; Z86.79 Personal history of other diseases of the circulatory system; Z90.5 Acquired absence of kidney ==

== ENCOUNTER → 2021-04-02 | Outpatient (CLI) | payer OTHER | LOC: SJCVC 09:58 | PROVIDERS: ATTEND Internal Medicine Cardiovascular Disease | DX: I10 Essential (primary) hypertension (principal) ==

== ENCOUNTER → 2021-07-14 | Outpatient (CLI) | payer OTHER | LOC: SJCVC 09:21 | PROVIDERS: ATTEND Internal Medicine Cardiovascular Disease | DX: I10 Essential (primary) hypertension (principal); I25.10 Atherosclerotic heart disease of native coronary artery without angina pectoris; I73.9 Peripheral vascular disease, unspecified; E78.00 Pure hypercholesterolemia, unspecified; Z79.899 Other long term (current) drug therapy; E78.5 Hyperlipidemia, unspecified; E11.51 Type 2 diabetes mellitus with diabetic peripheral angiopathy without gangrene; Z87.891 Personal history of nicotine dependence; Z72.89 Other problems related to lifestyle ==

== ENCOUNTER → 2021-09-22 | Outpatient (CLI) | payer OTHER | LOC: SJCVCIMAG 13:17 | PROVIDERS: ATTEND Nuclear Medicine Nuclear Cardiology | DX: I65.23 Occlusion and stenosis of bilateral carotid arteries (principal); I70.202 Unspecified atherosclerosis of native arteries of extremities, left leg; I77.9 Disorder of arteries and arterioles, unspecified; I25.10 Atherosclerotic heart disease of native coronary artery without angina pectoris; E11.22 Type 2 diabetes mellitus with diabetic chronic kidney disease; I12.9 Hypertensive chronic kidney disease with stage 1 through stage 4 chronic kidney disease, or unspecified chronic kidney disease; N18.9 Chronic kidney disease, unspecified; E11.00 Type 2 diabetes mellitus with hyperosmolarity without nonketotic hyperglycemic-hyperosmolar coma (NKHHC); E29.1 Testicular hypofunction; I49.3 Ventricular premature depolarization; G47.33 Obstructive sleep apnea (adult) (pediatric); Z90.5 Acquired absence of kidney; Z86.79 Personal history of other diseases of the circulatory system; Z87.891 Personal history of nicotine dependence; Z82.79 Family history of other congenital malformations, deformations and chromosomal abnormalities; Z79.899 Other long term (current) drug therapy ==

== ENCOUNTER → 2021-10-02 | Outpatient (CLI) | payer OTHER ==
[~2021-10-02] VITALS: Ht 185.4 cm; Wt 97.5 kg
[~2021-10-02] MED LIST changes: +CHLORTHALIDONE25 MG PO
[2021-10-02 08:39] LABS: HEMATOCRIT 37.9 % (42.0-52.0); HEMOGLOBIN 12.8 gm/dL (14.0-18.0); MCH 29.3 pg (26.0-34.0); MCHC 33.6 g/dL (28.0-37.0); MCV 87.2 fL (80.0-100.0); RBC 4.35 mil/uL (4.50-6.00); RDW 14.3 % (10.5-14.5); WBC 6.4 thou/uL (4.0-11.0)
[2021-10-02 08:45] VITALS: BP 118/52
[2021-10-02 08:51] LABS: CALCIUM 8.6 mg/dL (8.5-10.1); CREATININE 1.5 mg/dL (0.7-1.3)
== END | disposition home or self-care (01) ==
LOC: CATH 08:07
PROVIDERS: ATTEND Nuclear Medicine Nuclear Cardiology
DX: I70.248 Atherosclerosis of native arteries of left leg with ulceration of other part of lower leg (principal); L97.929 Non-pressure chronic ulcer of unspecified part of left lower leg with unspecified severity; I70.1 Atherosclerosis of renal artery; I12.9 Hypertensive chronic kidney disease with stage 1 through stage 4 chronic kidney disease, or unspecified chronic kidney disease; E11.22 Type 2 diabetes mellitus with diabetic chronic kidney disease; N18.9 Chronic kidney disease, unspecified; I25.10 Atherosclerotic heart disease of native coronary artery without angina pectoris; E78.5 Hyperlipidemia, unspecified; K21.9 Gastro-esophageal reflux disease without esophagitis; Z79.899 Other long term (current) drug therapy; Z98.890 Other specified postprocedural states; Z87.891 Personal history of nicotine dependence